=== PATIENT | female | born 1980 | race Two or more races ===

== ENCOUNTER 2024-10-24 13:54 | Emergency (ER) | payer MEDICAID, SELFPAY ==
[2024-10-24 13:57] VITALS: BMI 35.7
[2024-10-24 14:25] VITALS: BP 115/84; PULSE 83; RESP 16; TEMP 36.8; O2SAT 98
--- NOTE | 2024-10-24 14:38 | PD.EDRME ---
Rapid Medical Screening Exam RME Arrival date/time: 10/24/24 13:54 This is a 44-year-old female that comes in with complaints of right flank pain that radiates to her right lower abdomen that started today. Patient reports nausea but no vomiting. Patient denies any past medical history. I have greeted and performed a focused initial assessment of this patient. Initial appropriate labs ordered at this time. A comprehensive ED assessment and evaluation of the patient and analysis of all test and completion of medical decision making process will be conducted by additional ED provider. Chief Complaint: Back Pain/Injury Time Seen by Provider: 10/24/24 14:24 Vital signs: Vital Signs Temperature 98.2 F 10/24/24 14:25 Pulse Rate 83 10/24/24 14:25 Respiratory Rate 16 10/24/24 14:25 Blood Pressure 115/84 10/24/24 14:25 Pulse Oximetry (%) 98 10/24/24 14:25 Oxygen Delivery Method Room Air 10/24/24 14:25
[2024-10-24 15:03] LABS: Collection Type, Urine Voided
[2024-10-24 15:11] LABS: Bilirubin,Urine Negative (Negative); Blood,Urine 1+ (Negative); Clarity,Urine Clear (Clear/Hazy); Color,Urine Lt-Yellow (Lt Yel-Yel); Culture Indicated,Urine Not Indicated; Glucose, Urine Negative (Negative); Ketones,Urine 4+ (Negative); Leukocyte Esterase,Urine Negative (Negative); Nitrite,Urine Negative (Negative); PH,Urine 5.5 (5.0-7.0); Protein,Urine Trace (Neg - Trace); RBC,Urine 3 /hpf (0-3); Specific Gravity,Urine 1.014 (1.001-1.035); Squamous Epithelial Cell,Urine 8 /hpf (0-5); Urobilinogen,Urine Negative mg/dL (0.0-1.0); WBC,Urine 4 /hpf (0-5)
[2024-10-24 15:13] LABS: HCG Qualitative,Urine Negative
[2024-10-24 15:55] LABS: Basophils # (Auto) 0.1 Thou/mm3 (0.0-0.2); Basophils % (Auto) 1 % (0-2.5); Eosinophils # (Auto) 0.1 Thou/mm3 (0.0-0.5); Eosinophils % (Auto) 1 % (0-10); Hematocrit 36.4 % (36.0-46.0); Hemoglobin 12.1 g/dL (12.0-16.0); Immature Granulocytes % (Auto) 0 % (0-0); Immature Granulocytes Auto 0.02 Thou/mm3 (0.00-0.00); Lymphocytes # (Auto) 1.7 Thou/mm3 (1.0-4.8); Lymphocytes % (Auto) 17 % (10-50); Mean Corpuscular HGB Conc 33.2 g/dl (31.0-37.0); Mean Corpuscular Hemoglobin 26.8 pg (25.0-35.0); Mean Corpuscular Volume 81 fL (80-100); Monocytes # (Auto) 0.8 Thou/mm3 (0.0-0.8); Monocytes % (Auto) 8 % (0-12); Neutrophils # (Auto) 7.5 Thou/mm3 (1.8-7.7); Neutrophils % (Auto) 73 % (37-80); Nucleated Red Blood Cell % 0 /100 WBC (0); Platelet Count 298 Thou/mm3 (140-440); RDW Standard Deviation 43.8 fL (36.4-46.3); Red Blood Count 4.51 Miln/mm3 (4.00-5.20); White Blood Count 10.3 Thou/mm3 (3.6-11.0)
[2024-10-24 16:15] LABS: Alanine Aminotransferase 34 U/L (10-49); Albumin, Serum 4.2 gm/dL (3.5-5.0); Albumin/Globulin Ratio 1.6 (1.2-2.2); Alkaline Phosphatase 58 U/L (46-116); Anion Gap 13 (7-16); Aspartate Amino Transferase 39 U/L (0-34); BUN/Creatinine Ratio 12 Ratio (12-20); Bilirubin,Total 0.4 mg/dL (0.3-1.2); Blood Urea Nitrogen 11 mg/dL (9-23); Calcium 9.2 mg/dL (8.3-10.6); Calcium (Corrected) 9.2 mg/dL (8.5-10.1); Carbon Dioxide 20.4 mMol/L (20.0-31.0); Chloride 104 mMol/L (98-107); Creatinine (Component) 0.9 mg/dL (0.6-1.3); Estimated Creatinine Clearance 86.6 mL/min (>60); Globulin 2.7 gm/dL (2.3-3.5); Glucose 81 mg/dL (74-106); Lipase 116 U/L (12-53); Osmolality,Calculated 272 (275-295); Potassium 4.8 mMol/L (3.4-5.1); Sodium 137 mMol/L (136-145); Total Protein 6.9 gm/dL (5.7-8.2); eGFR > 60 See Note
--- NOTE | 2024-10-24 16:42 | XR_ITS ---
Examination: Abdomen sonogram, Limited Date and time of exam: October 24, 2024 1742 hrs. Indications: Right flank pain and nausea beginning today Technique: Real-time bustamante scale transabdominal sonographic images of the upper abdomen obtained. Findings: 19 mm gallstone Gallbladder wall 0.2 cm Common bile duct 0.4 cm Pancreatic head 2.5 cm Liver 14.3 cm fatty liver lobular contour no focal liver lesions Normal hepatopedal portal venous flow Patent IVC Impression: Cholelithiasis, negative for cholecystitis
--- NOTE | 2024-10-24 18:12 | PD.EDBACK ---
ED Back Injury Pain RME/HPI General Chief Complaint: Back Pain/Injury Stated Complaint: Right flank pain w Nausea, no vomiting. Constipati Time Seen by Provider: 10/24/24 14:24 Source: patient Arrival date/time: 10/24/24 13:54 This is a 44-year-old female that comes in with complaints of right flank pain that radiates to her right lower abdomen that started today. Patient reports nausea but no vomiting. +hx of nephrolithiasis and recent gastric sleeve. Denies fever, chills rigors. RME / HPI RME / HPI Narrative: 10/24/24 13:54 This is a 44-year-old female that comes in with complaints of right flank pain that radiates to her right lower abdomen that started today. Patient reports nausea but no vomiting. Patient denies any past medical history. I have greeted and performed a focused initial assessment of this patient. Initial appropriate labs ordered at this time. A comprehensive ED assessment and evaluation of the patient and analysis of all test and completion of medical decision making process will be conducted by additional ED provider. Related Data Previous Rx's ?Medication ?Instructions ?Recorded ibuprofen 600 mg tablet 600 mg PO Q6H PRN pain #30 tabs 01/07/19 sulfamethoxazole 800 1 tab PO BID #20 tabs 01/07/19 mg-trimethoprim 160 mg tablet (Bactrim DS) Allergies Allergy/AdvReac Type Severity Reaction Status Date / Time No Known Allergies Allergy Verified 01/07/19 07:56 Review of Systems Review of Systems Systems Reviewed: All systems reviewed, normal except as documented Narrative Review of Systems: Gen: No fever, no chills, no weight loss EYES: No discharge, no visual changes, no pain HEENT: No ear pain, no congestion, no sore throat PULM: No shortness of breath, no cough, no congestion CV: No chest pain, no dyspnea on exertion, no palpitations GI: + nausea, no vomiting, no diarrhea, +rt flank pain, no constipation : No frequency, no urgency,? no dysuria Musc/skel: No joint pain, no back pain Skin: No rash? Psyc: No hallucinations, no depression Heme/Lymph: No easy bleeding or bruising tendencies Neuro: No weakness, no headache ED Exam Narrative Physical exam: General: Sittiing in Exam table in no acute distress, answering questions appropriately HENT: normocephalic, atraumatic, EOMI, PERRLA, moist mucous membranes Chest: chest wall is nontender Cardiac: regular rate and rhythm, normal S1 and S2, no murmurs, rubs, or gallops, capillary refill ?2 seconds Pulmonary: clear to auscultation bilaterally, no wheezing, crackles, or rhonchi Abdominal: active bowel sounds, soft, nontender, nondistended. + Right flank pain radiating to right lower abdominal Neuro: A&OX3, CN II-XII intact, sensation grossly intact bilaterally in UE and LE. Skin: no rashes, no ecchymosis Ext: no lower extremity edema Course Quality Measures none Orders Category Date Time Status CT abdomen pelvis wo con Stat Exams 10/24/24 18:11 Completed US abdomen limited Stat Exams 10/24/24 16:42 Completed CBC Stat Lab 10/24/24 15:46 Completed Comprehensive Metabolic Panel Stat Lab 10/24/24 15:46 Completed HCG Qualitative,Urine Stat Lab 10/24/24 14:48 Completed Lipase Stat Lab 10/24/24 15:46 Completed Urinalysis, C/S if Indicated Stat Lab 10/24/24 14:48 Completed Ketorolac Inj [Toradol Inj] Med 10/24/24 18:11 Discontinued 30 mg IM X1 ONE Vital Signs Vital signs: Vital Signs Temperature 98.2 F 10/24/24 14:25 Pulse Rate 83 10/24/24 14:25 Respiratory Rate 16 10/24/24 14:25 Blood Pressure 115/84 10/24/24 14:25 Pulse Oximetry (%) 98 10/24/24 14:25 Oxygen Delivery Method Room Air 10/24/24 14:25 Back Pain / Injury MDM Narrative MDM Narrative:: This is a 44-year-old female evaluated in the emergency department with complaints of right flank pain. Patient is awake and alert vital signs stable patient's labs reviewed. No leukocytosis no bandemia no anemia. No acute renal failure, no electrolyte imbalance. Patient's ultrasound does demonstrate a 5 mm stone with mild hydronephrosis. Patient drinking fluids fine no nausea no vomiting. Gallbladder ultrasound also demonstrated cholelithiasis without cholecystitis. Liver enzymes normal and T. bili normal. Patient is seen to the Emergency Department and evaluated.Patient is stable for discharge no anemia, no sepsis, no infection, will DC with pain control, and follow-up her clinic on outpatient basis. There is no acute reason that warrant admission patient at this time Patient appears non-toxic and VSS, Taking PO fluids. No tachycardia out of proportion, no tachypnea, no dyspnea/SOB. Will Discharge patient home with close follow up with PMD. Patient informed about red flags regarding a possible need to seek medical attention. Patient data External records reviewed:: [facility] previous records Clinical information provided by:: patient Social determinants that could affect healthcare access:: none Patient has the following chronic illnesses:: none How is presenting disease/condition affected by chronic disease/condition?: no chronic disease Evaluation data The following diagnostics were reviewed and interpreted by me:: lab results and radiology exam(s) Lab and/or radiology exams considered but not ordered:: no Interpretation Summary: Examination: Abdomen sonogram, Limited Date and time of exam: October 24, 2024 1742 hrs. Indications: Right flank pain and nausea beginning today Technique: Real-time bustamante scale transabdominal sonographic images of the upper abdomen obtained. Findings: 19 mm gallstone Gallbladder wall 0.2 cm Common bile duct 0.4 cm Pancreatic head 2.5 cm Liver 14.3 cm fatty liver lobular contour no focal liver lesions Normal hepatopedal portal venous flow Patent IVC Impression: Cholelithiasis, negative for cholecystitis Examination: CT abdomen and pelvis without contrast. Coronal 3-D reconstructions. Sagittal 2-D reconstructions. Date and time of exam:October 24, 2024 1825 hrs. Indications: Onset flank pain beginning this morning, history right renal calculi on CT study 08/09/2019 CTDI: vol (mGy): 13 DLP: (mGycm): 657 Technique: Axial images of the abdomen have been obtained, 3 mm slice thickness Intravenous contrast material has not been administered. Low dose protocols were performed. One or more of the following dose reduction techniques were used; automated exposure control, adjustment of the mA and/or KV according to patient size, use of iterative reconstruction technique. Findings: No focal liver lesions Contracted gallbladder with gallstones No splenic or pancreatic mass Normal adrenal glands Mild right hydronephrosis secondary to 5 mm proximal right ureteral calculus Aorta normal size No pericecal inflammatory changes No bowel obstruction Anteverted uterus with enlarged fundus, likely 5 cm uterine fundal mass No bladder mass or bladder calculi Impression: Mild right hydronephrosis secondary to 5 mm proximal right ureteral calculus Recommend pelvic sonography to confirm 5 cm uterine fundal mass of Medications / Prescriptions Medications or Prescriptions considered but not ordered:: no Medication administrations:: Medication Administration History Discontinued Medications Ketorolac Tromethamine (Ketorolac Inj 60 Mg/2 Ml Vial) 30 mg IM X1 ONE Stop: 10/24/24 18:12 Last Admin: 10/24/24 19:40 Dose: 30 mg Documented By: KF meds administered Consultations Consultation(s) initiated? (list below): No Diagnosis Differential diagnosis back pain/injury: sciatica, strain of lumbar region, renal colic and pyelonephritis Most likely diagnosis given after review of the tests above:: Nephrolithasis Admission Indicated Admission indicated?: not indicated Admission Request Was there a request for admission?: No Disposition Plan Disposition Plan: Discharge Discharge Attestation Discharge Attestation: The patient and all family members were given an opportunity to ask questions and understood the discharge instructions. Discharge instructions specifically effects, indications for sooner follow up or return to the emergency department, and the expected course of current diagnosis. Patient condition: Stable Discharge Plan Plan Patient Disposition: HOME (Self Care) Patient condition on transfer: Stable Prescriptions/Referrals Prescriptions/Med Rec: No Action ibuprofen 600 mg tablet 600 mg PO Q6H PRN (Reason: pain) Qty: 30 0RF sulfamethoxazole-trimethoprim [Bactrim DS] 800-160 mg tablet 1 tab PO BID Qty: 20 0RF Referrals: No Primary/Family,Physician [Primary Care Provider] - In 1 week Problem List Clinical Impression: Renal colic, Cholelithiasis, Uterine mass Patient/Caregiver Discharge Instructions Discharge Activity: activity as tolerated Education Materials: ED Gallstones with Biliary Colic, ED Kidney Stone w/ Colic Additional Instructions: 1. Lo m?s probable es que garcia dolor se deba a un c?lculo renal. Tiene un c?lculo renal de 5 mm que le causa dolor. Debe hacer un seguimiento con garcia m?dico de atenci?n primaria para obtener paddy derivaci?n a urolog?a. Mary Anne brandan agua y mant?ngase hidratado. Puede juvenal ibuprofeno para el dolor. 2. Hubo un hallazgo incidental de un c?lculo biliar. Es necesario hacer un seguimiento con garcia m?dico de atenci?n primaria sobre belem ivis, disminuir los alimentos grasos y cambiar la dieta. Es posible que necesite paddy derivaci?n de un cirujano general para pacientes ambulatorios en el futuro. 3. Hubo un hallazgo incidental de paddy posible masa uterina. [place]etano un seguimiento con garcia m?dico de atenci?n primaria sobre belem ivis. 1. Your pain was most likely due to a renal kidney stone. You have a 5 mm renal stone causing your pain. You need to follow-up with your primary doctor for a urology referral. Drink plenty of water keep hydrated. Can take ibuprofen for pain. 2. There was an incidental finding of a gallstone. You need to follow-up with your primary doctor in this issue decrease fatty food, change diet. You might need a outpatient general surgeon referral in the future. 3. There was an incidental finding of a uterine possible mass please follow-up with your primary doctor on this issue. Print Language: Telugu Stand Alone Forms: Kiesha Award Info., Patient Portal Info Letter SAMI/MARK Supervising Physician SAMI/MARK Supervising Physician: Dr. Dang
[2024-10-24] MEDS: KETOROLAC INJ 60 MG/2 ML VIAL 30 MG IM (19:40)
== END 2024-10-24 20:07 | disposition home or self-care (01) ==
PROVIDERS: Nurse Practitioner Family; Emergency Provider Emergency Medicine
DX: K80.20 Calculus of gallbladder without cholecystitis without obstruction (principal); N13.2 Hydronephrosis with renal and ureteral calculous obstruction
CPT/HCPCS: 36415; 74176; 76705; 80053; 81001; 81025; 83690; 85025; 96372; 99284; J1885

== ENCOUNTER → 2024-12-04 | Outpatient (CLI) | payer MEDICAID, SELFPAY ==
[2024-12-03 12:10] LABS: HCG Qualitative,Urine Negative
--- NOTE | 2024-12-04 14:30 | XR_ITS ---
Examination: MRI pelvis with intravenous contrast. MRI pelvis without intravenous contrast. Date and time of exam: December 04, 2024 at 1510 hours INDICATIONS: Irregular heavy menses 3 months with cramping, anteverted uterus with enlarged fundus and 5 cm uterine fundal mass on CT pelvis October 24, 2024 Technique: Multiple axial, sagittal and coronal sections of the pelvis obtained. Transverse images, TR 6020, TE 107. T1 weighted transverse images, TR 582, TE 9.5. T2-weighted sagittal images, TR 4000, TE 105. T2-weighted sagittal images, TR 4000, TE 5. Coronal images, TR 4210, TE 107. Axial and coronal images are obtained post 17 cc intravenous injection, gadolinium. Findings: Uterus 10.9 cm endometrial stipe 4 mm Uterine circumscribed fundal mass 5.4 x 5.6 cm most consistent with fibroid degeneration Postcontrast images demonstrate mild enhancement of this mass and better demonstrate 12 mm uterine fundal body mass in addition as well as right uterine fundal mass 33 mm No adnexal mass No free fluid in the pelvis IMPRESSION: Findings most consistent with benign areas of uterine fibroid degeneration, the largest in the fundus 5.4 x 5.6 cm Recommend 6 month follow up transvaginal pelvic sonography
== END | disposition home or self-care (01) ==
LOC: SMRI 14:05
PROVIDERS: Referring Provider Physician Assistant; Visit Provider Physician Assistant
DX: N85.8 Other specified noninflammatory disorders of uterus (principal); Z32.00 Encounter for pregnancy test, result unknown; D25.9 Leiomyoma of uterus, unspecified
CPT/HCPCS: 72197; 81025; A9579

== ENCOUNTER 2025-04-26 15:00 | Outpatient (AMB) | payer MEDICAID, SELFPAY ==
[2025-04-26 15:54] VITALS: BP 98/61; PULSE 64; RESP 16; TEMP 36.9; O2SAT 98; BMI 28.1
--- NOTE | 2025-04-26 15:54 | GYNCLNT_ITS ---
Vital Signs 04/26/25 15:54 Height 1.6 m Height Method Stated Weight 72.121 kg Weight Measurement Method Standing Scale BMI 28.1 BP 98/61 Blood Pressure Source Automatic Cuff Blood Pressure Location Left Upper Arm Position Sitting Respiration 16 Pulse 64 Pulse Source Monitor Temp 98.4 F Temp Source Oral Pulse Oximetry (%) 98 Oxygen Delivery Method Room Air Allergies/Home Meds Allergies & Medications Allergies No Known Allergies Allergy (Verified 04/26/25 15:58) Intake Visit Data Collection New Patient or Established: Established Patient (seen at [facility] within 3 years) Reason for Visit:: REFERRAL LEIOMYOMA Seen by Clinical Staff ONLY (RN/MA): No [employer] Sales Required: Yes Solar[employer] Sales's name/title: [employer] Do You Feel Safe at Home: Yes Authorities Contacted: N/A PCP or OBGYN visit in last 3 months: Yes Hx Now: Yes Are you currently on any form of Control: No Last menstrual period: 04/22/25 Pain Present Currently: No Pain Scale Used: Crump-Ray/Numerical Pain scale:: 0 Smoking Status Smoking Status: Never smoker Purchasing Expeditor history Purchasing Expeditor History Menstrual regularity: irregular Flow: normal Monthly: No How many days does period last: 8 Age at menarche: 14 Menopausal: Yes Currently sexually active: Yes [employer]: Past Medical History Past Medical History: No Hx Renal Disease, No Hx Diabetes Mellitus Type 1 and No Hx Diabetes Mellitus Type 2 Questionnaires Covid-19 Vaccine Questionnaire Has patient been vacinated for Covid-19 Have you been vacinated for Covid-19: Yes PHQ-9 PHQ-2 Over the last 2 weeks, how often have you been bothered by any of the following problems? 1. Little interest or pleasure in doing things: not at all 2. Feeling down, depressed, or hopeless: not at all Total score: 0 PHQ-9 3. Trouble falling or staying asleep, or sleeping too much: Not at all 4. Feeling tired or having little energy: Not at all 5. Poor appetite or overeating: Not at all 6. Feeling bad about yourself - or that you are a failure or have let yourself or your family down: Not at all 7. Trouble concentrating on things, such as reading the newspaper or watching television: Not at all 8. Moving or speaking so slowly that other people could have noticed? - Or the opposite - being so fidgety or restless that you have been moving around a lot more than usual: not at all 9. Thoughts that you would be better off or of hurting yourself in some way: Not at all Total score: 0 Source: Developed by Drs. Tyler Magaña, Nancy Cam, Desean Cordova and colleagues, with an educational winnie from [employer]. Depression screen completed yes Social History Living Situation History Marital Status: Lives With: Family Housing: House Tobacco History Smoking Status: Never smoker Second Hand Smoke Exposure: No Alcohol History Alcohol Intake: Never Domestic Abuse History Do You Feel Safe at Home: Yes History of Present Illness HPI Narrative Heena Pike, a Latvian-speaking patient with a history of hypertension and diabetes (both controlled), presents for evaluation of uterine fibroids. She was referred due to a large fibroid detected on imaging in November, measuring approximately 5 centimeters. The patient reports worsening symptoms related to her fibroids. She experiences heavy menstrual bleeding with clots twice a month. This bleeding has been increasing in severity over time, contrary to the typical pattern of fibroid- related symptoms. The patient denies any previous uterine surgeries, including C-sections. Heena's hypertension and diabetes are currently well-controlled with medication. However, given the potential for a major operation, she has been advised to consult her primary care physician for medication adjustments in preparation for possible surgery. Medical History: - Hypertension, controlled with medication - Diabetes, controlled with medication Exam General General Appearance: alert, in no apparent distress and healthy appearing Head Head exam: atraumatic Neck Neck exam: Present normal inspection and trachea midline Chest Chest inspection: Present normal inspection and symmetric chest wall rise External exam: Present normal external exam; Absent tenderness Neuro Neurological exam: Present oriented X3 Psych Psychiatric exam: Present normal affect and normal mood Office Procedures OB Clinic LOC & Office Proc's Nursing/Assessment Patient Status: Established Patient OB Clinic Nursing Assessment: Medication Reconciliation, Update PMH in EMR and Vital Signs OB Clinic Coordination of Care: Complex Care and Chronic Disease 1-5, Consent,records obtained, informed consent, Education Simp Pt/Fam, Lab and Imaging orders, Results/Orders obtained and Staff clarify orders Established Patient Charge Established Patient Point Assignment: 105 Established Patient Point Charge: EP Level 3 (80-115) Assessment & Plan Diagnosis / Problem List (1) Intramural leiomyoma of uterus: Status: Acute Plan Uterine Fibroids Assessment: Patient has a large uterine fibroid, approximately 5 cm in size, identified on imaging from November. The fibroid is causing worsening symptoms, including heavy menstrual bleeding with clots occurring twice a month. Given the progression of symptoms over the past 6 months and the size of the fibroid, surgical intervention may be necessary. No history of prior uterine surgeries reported. Plan: - Order repeat pelvic ultrasound to reassess fibroid size and growth - Submit insurance approval for potential hysterectomy - Schedule follow-up appointment to review ultrasound results and discuss treatment options, including potential hysterectomy - Advise patient to consult with primary care physician regarding pre-operative management of hypertension and diabetes Hypertension Assessment: Patient reports controlled hypertension. No specific blood pressure values provided during this visit. Plan: - Continue current antihypertensive regimen as prescribed by primary care physician - Advise patient to follow up with primary care physician for pre-operative evaluation and potential medication adjustments Diabetes Mellitus Assessment: Patient reports controlled diabetes. No specific glycemic values or current management details provided during this visit. Plan: - Continue current diabetes management as prescribed by primary care physician - Advise patient to follow up with primary care physician for pre-operative evaluation and potential medication adjustments
== END 2025-04-26 16:59 | disposition home or self-care (01) ==
LOC: HODSOBC 15:00
PROVIDERS: PCP Physician Assistant; Referring Provider Physician Assistant; Supervising Provider Obstetrics & Gynecology; Visit Provider Obstetrics & Gynecology
DX: D25.1 Intramural leiomyoma of uterus (principal); I10 Essential (primary) hypertension; E11.9 Type 2 diabetes mellitus without complications
CPT/HCPCS: 99213; G0463

== ENCOUNTER → 2025-07-25 | Outpatient (CLI) | payer MEDICAID, SELFPAY ==
--- NOTE | 2025-07-25 13:30 | XR_ITS ---
Examination: Screening digital mammography, bilateral Computer aided detection 3-D breast Tomosynthesis, bilateral Date and time of exam: July 25, 2025, 1316 hours No priors Indication: Screening Technique: Nonmagnified MLO, CC views of the breasts to been obtained, reconstructed from 3-D Tomosynthesis images. R2 computer aided detection program utilized for evaluation of suspicious masses and/or abnormal calcifications. 3-D Tomosynthesis images obtained. Findings: The breasts are heterogeneously dense, which may obscure small masses Skin lesion upper left breast Suspicious focus microcalcifications upper outer right breast Impression: BI-RADS Category 0: Incomplete: Need additional imaging evaluation Recommend follow-up magnification spot compression films of microcalcifications upper outer right breast as well as bilateral breast sonography to complete .
== END | disposition home or self-care (01) ==
LOC: CDIM 13:11
PROVIDERS: Referring Provider Nurse Practitioner Primary Care; Visit Provider Nurse Practitioner Primary Care
DX: Z12.31 Encounter for screening mammogram for malignant neoplasm of breast (principal); R92.0 Mammographic microcalcification found on diagnostic imaging of breast; R92.8 Other abnormal and inconclusive findings on diagnostic imaging of breast
CPT/HCPCS: 77063; 77067

== ENCOUNTER → 2025-08-29 | Outpatient (CLI) | payer MEDICAID, SELFPAY ==
--- NOTE | 2025-08-29 13:50 | XR_ITS ---
Examination: Pelvic ultrasound, transabdominal, complete Technique: Transabdominal ultrasound of the pelvis performed using grayscale imaging Date and time of exam: August 29, 2025, 1415 hours INDICATIONS: Vaginal bleeding, uterine mass on ultrasound December 04, 2024 FINDINGS: Uterus 14.0 cm uterine fundal mass replaces the fundus, 9.7 x 5.6 x 10.2 cm Lower uterine segment area fibroid degeneration 3.1 x 2.5 x 3.1 cm Right ovary 4.0 cm arterial flow Left ovary 2.5 cm arterial flow IMPRESSION: Large areas of uterine fibroid degeneration as above
== END | disposition home or self-care (01) ==
LOC: CDIM 13:48
PROVIDERS: PCP Physician Assistant; Referring Provider Obstetrics & Gynecology; Visit Provider Obstetrics & Gynecology
DX: D25.9 Leiomyoma of uterus, unspecified (principal)
CPT/HCPCS: 76856